=== PATIENT | female | born 1960 | race Caucasian/White ===

== ENCOUNTER 2018-07-25 08:59 | Emergency (ER) | payer MEDICARE, MEDICAID ==
[2018-07-25 09:05] VITALS: BMI 32.1
[2018-07-25] MEDS ORDERED: MOBIC7.5 MG PO (09:06)
[2018-07-25] MEDS ORDERED: MULTI-DAY VITAM1 TAB PO (09:06)
[2018-07-25] MEDS ORDERED: ZOVIRAX800 MG PO (10:19)
[2018-07-25] MEDS ORDERED: VOLTAREN75 MG PO (10:19)
[2018-07-25 10:41] VITALS: BP 124/81
== END 2018-07-25 10:51 | disposition home or self-care (01) ==
LOC: D.ER 08:59
DX: B02.9 Zoster without complications (principal)

== ENCOUNTER 2018-09-29 11:39 | Emergency (ER) | payer MEDICARE, MEDICAID ==
[~2018-09-29] VITALS: Ht 157.5 cm; Wt 77.3 kg
[~2018-09-29 11:39] MED LIST: MOBIC7.5 MG PO; MULTI-DAY VITAM1 TAB PO; VOLTAREN75 MG PO; ZOVIRAX800 MG PO
[2018-09-29 11:42] VITALS: Ht 157.5 cm; Wt 77.3 kg
[2018-09-29] MEDS ORDERED: VITAMIN D31000 UNIT PO (11:47)
[2018-09-29] MEDS ORDERED: VITAMIN B-12500 MCG PO (11:47)
[2018-09-29] MEDS ORDERED: VOLTAREN75 MG PO (12:36)
[2018-09-29] MEDS ORDERED: POLYTRIM EYE DR10 ML EACH EYE (12:36)
[2018-09-29 12:47] VITALS: BP 105/70
== END 2018-09-29 12:47 | disposition home or self-care (01) ==
LOC: D.ER 11:39
DX: S05.01XA Injury of conjunctiva and corneal abrasion without foreign body, right eye, initial encounter (principal); X58.XXXA Exposure to other specified factors, initial encounter; Y93.89 Activity, other specified; Y92.019 Unspecified place in single-family (private) house as the place of occurrence of the external cause